=== PATIENT | male | born 1990 | race Caucasian/White ===

== ENCOUNTER 2024-11-11 08:03 | Emergency (ER) | payer OTHER, SELFPAY ==
[2024-11-11] VITALS (10 sets, daily range): BP systolic 137–164; BP diastolic 81–111; PULSE 86–109; RESP 15–22; TEMP 36.9; O2SAT 96–97; BMI 26.7
--- NOTE | 2024-11-11 08:12 | EKG_ITS ---
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
--- NOTE | 2024-11-11 08:17 | DI.RAD.S_ITS ---
PROCEDURE: XR CHEST 1V INDICATIONS: Chest Pain TECHNIQUE: One view of the chest was acquired. COMPARISON: None. FINDINGS: Cardiopericardial silhouette and pulmonary vasculature within normal limits. No pneumothorax, no pleural effusion, no lobar consolidation. IMPRESSION: Negative chest one view. If symptoms persist or worsen, or there is high clinical suspicion of thoracic abnormality, CT chest could be performed. Dictated by: Dallas Douglas M.D. on 11/11/2024 at 8:32 Approved by: Dallas Douglas M.D. on 11/11/2024 at 8:33
[2024-11-11 08:27] LABS: Add Manual Diff / Slide Review NO; Hematocrit 49.2 % (41-53); Hemoglobin 17.2 g/dL (13.5-17.5); Lymphocytes Absolute Auto 1800 /uL (1100-4500); Mean Corpuscular HGB Conc 34.9 % (30-36); Mean Corpuscular Hemoglobin 29.4 PG (26-34); Mean Corpuscular Volume 84.1 fL (80-100); Platelet Count 275 X10^3/uL (150-400)
[2024-11-11 08:34] LABS: INR 0.9 (0.9-1.3); Prothrombin Time 10.7 SECONDS (9.4-12.5)
[2024-11-11 08:37] LABS: PTT Partial Thromboplastin Tim 32 SECONDS (25.1-36.5)
[2024-11-11 08:39] LABS: Alanine Aminotransferase 75 IU/L (<50); Albumin 5.1 g/dL (3.5-5.0); Albumin Globulin Ratio 1.6 (1.0-2.8); Alkaline Phosphatase 75 U/L (38-126); Blood Urea Nitrogen 17 mg/dL (9-20); Calcium 9.5 mg/dL (8.4-10.2); Carbon Dioxide 26 mmol/L (22-32); Chloride 105 mmol/L (98-107); Creatine Kinase 208 U/L (55-170); Estimated Glomerular Filt Rate > 60 mL/min (>60); Globulin 3.1 g/dL (1.7-4.1); Glucose 101 mg/dL (70-99); HEMOLYSIS 41 (0-50); Lipase 91 U/L (23-300); Magnesium 2.1 mg/dL (1.6-2.3); Potassium 4.0 mmol/L (3.4-5.1); Sodium 141 mmol/L (137-145); Total Protein 8.2 g/dL (6.3-8.2)
[2024-11-11 08:50] LABS: NT-proBNP (BNP-Adult 18+) 459 pg/mL (<125); Troponin I < 0.012 ng/mL (0.01-0.034)
--- NOTE | 2024-11-11 08:59 | ED_ITS ---
HPI - Arrhythmia/Palpitations General Chief Complaint: Arrhythmia/Palpitations Stated Complaint: Possible AFIB Time Seen by Provider: 11/11/24 08:31 Source: patient Mode of arrival: Ambulatory History of Present Illness HPI narrative: This is a 34-year-old man with a history of paroxysmal atrial fibrillation presenting with 12 hours of atrial fibrillation. States that he noted this at 7:30 p.m. last night. He is not having chest pain he is not fainting he is not feeling short of breath. He has had numerous episodes of atrial fibrillation in the past and has been cardioverted numerous times. He says it has been about 2 years since his last cardioversion he is not anticoagulated. He is not taking any regular prescriptions medications at this point does not have a primary care provider and has not seen a sewing machine operator plastic zipper in quite some time. Previous care has been at [facility]. No history of aneurysm severe headache or GI bleeding. Related Data Previous Rx's ?Medication ?Instructions ?Recorded metoprolol tartrate 25 mg tablet See Rx Instructions . 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 leisure activities: sports and games Smoking Status: Former smoker alcohol intake: current during the past year weight has: remained stable Smoking Status: Former smoker Exam Initial Vital Signs Initial Vital Signs: Vital Signs Pulse Rate 94 H 11/11/24 08:11 Pulse Oximetry 97 11/11/24 08:11 vital signs are reviewed Const General: cooperative and No acute distress HENMT Head: normocephalic and atraumatic Face and sinus: face symmetric Mouth: moist mucous membranes Eyes Pupils: PERRL EOM: EOM intact bilaterally Neck Neck: normal visual inspection, supple and No JVD Chest Chest: normal inspection of the chest Resp Effort & Inspection: normal respiratory effort and able to speak in complete sentences Auscultation: clear to auscultation bilaterally Cardio Other: Irregularly irregular no murmur rub or gallop heart sounds are normal GI Inspection: normal to inspection Palpation: soft Auscultation: normal bowel sounds Back/Spine/Pelvis Back: normal to inspection Skin General: no rashes or lesions noted and warm Neuro General: patient alert, patient oriented x3 and moves all extremities Speech: speech normal Extrem General: full ROM Psych Appearance: grossly normal Procedures Cardioversion Time of Cardioversion: 09:30 Indication: Atrial fibrillation Stability: Stable Number of attempts (shocks): 1 Joules used: 150 Cardiac rhythm post-cardioversion: Normal sinus rhythm Additional Comments: Synchronized cardioversion uneventful Procedural Sedation Time of procedure: Consent signed: Yes Time out performed: Yes Indication: cardioversion ASA Class: I Mallampati Airway Classification: Class I Time of Last PO Intake: 21:30 IV Etomidate dose (mg): 15 ED Sedation Level: Moderate (Concious) Patient Tolerated Procedure: No complications Additional Comments: At 9:45 a.m. patient is back to baseline. Course Orders Ordered: ED Orders 11/11/24 08:17 XR chest 1V Stat Complete Blood Count AUTO DIFF Stat Comprehensive Metabolic Panel Stat Lipase Stat Magnesium Stat NT-proBNP (BNP-Adult 18+) Stat PTT Partial Thromboplastin Rodney Stat Prothrombin Time INR Stat Troponin & CK Cardiac Panel Stat EKG-12 Lead Stat 11/11/24 09:03 Consult to Cardiology Stat 11/11/24 09:41 EKG-12 Lead Stat Discontinued Medications Apixaban (Apixaban 5 Mg Tablet) 5 mg PO NOW ONE Stop: 11/11/24 09:45 Last Admin: 11/11/24 09:57 Dose: 5 mg Documented By: RICARDA Aspirin (Aspirin 81 Mg Chew Tab) 324 mg PO NOW ONE Stop: 11/11/24 08:18 Etomidate (Etomidate 2 Mg/Ml 10 Ml Vial) 15 mg IV NOW ONE Stop: 11/11/24 09:03 Last Admin: 11/11/24 09:35 Dose: 15 mg Documented By: RICARDA Etomidate (Etomidate 2 Mg/Ml 10 Ml Vial) 10 mg 0.1 mg/kg (10 mg) IV NOW ONE Stop: 11/11/24 09:29 Vital Signs Vital signs: Vital Signs - 8 hr 11/11/24 08:11 11/11/24 08:12 11/11/24 08:12 Temperature Pulse Rate 94 H 101 H Respiratory Rate Blood Pressure 163/95 H Pulse Oximetry 97 97 Oxygen Delivery Method 11/11/24 08:13 11/11/24 08:30 11/11/24 08:31 Temperature 98.5 F Pulse Rate 102 H 104 H Respiratory Rate 15 17 Blood Pressure 163/95 H 137/81 Pulse Oximetry 97 96 Oxygen Delivery Method Room Air 11/11/24 08:31 11/11/24 09:00 11/11/24 09:00 Temperature Pulse Rate 105 H 106 H Respiratory Rate 16 20 Blood Pressure 161/84 H Pulse Oximetry 96 96 Oxygen Delivery Method 11/11/24 09:30 11/11/24 09:30 11/11/24 09:37 Temperature Pulse Rate 107 H 109 H Respiratory Rate 16 Blood Pressure 163/110 H Pulse Oximetry 96 97 Oxygen Delivery Method 11/11/24 09:37 11/11/24 10:00 11/11/24 10:01 Temperature Pulse Rate 86 Respiratory Rate 22 Blood Pressure 164/111 H 146/95 H Pulse Oximetry Oxygen Delivery Method 11/11/24 10:01 Temperature Pulse Rate 90 Respiratory Rate 18 Blood Pressure Pulse Oximetry Oxygen Delivery Method MDM - Arrhythmia/Palpitations Lab Data Lab results narrative: CBC with diff and CMP are unremarkable 11/11/24 08:17 11/11/24 08:17 Labs: Lab Results 11/11/24 Range/Units 08:17 WBC 6.7 (4.5-11.0) X10^3/uL RBC 5.85 (4.5-5.9) X10^6/uL Hgb 17.2 (13.5-17.5) g/dL Hct 49.2 (41-53) % MCV 84.1 (80-100) fL MCH 29.4 (26-34) PG MCHC 34.9 (30-36) % RDW 13.1 (11.6-14.8) % Plt Count 275 (150-400) X10^3/uL Neut % (Auto) 57.3 (50-75) % Lymph % (Auto) 26.6 (25-40) % B[place] % (Auto) 9.8 (3-14) % Eos % (Auto) 4.5 H (2-4) % Baso % (Auto) 1.8 (0-2) % Neut # (Auto) 3900 (0974-9869) /uL Lymph # (Auto) 1800 (4901-5066) /uL [place] # (Auto) 700 (0-900) /uL Eos # (Auto) 300 (0-450) /uL Baso # (Auto) 100 (0-100) /uL PT 10.7 (9.4-12.5) SECONDS INR 0.9 (0.9-1.3) APTT 32 (25.1-36.5) SECONDS Sodium 141 (137-145) mmol/L Potassium 4.0 (3.4-5.1) mmol/L Chloride 105 (98-107) mmol/L Carbon Dioxide 26 (22-32) mmol/L BUN 17 (9-20) mg/dL Creatinine 1.03 (0.66-1.25) mg/dL Estimated GFR > 60 (>60) mL/min BUN/Creatinine Ratio 16.5 (6-22) Glucose 101 H (70-99) mg/dL Calcium 9.5 (8.4-10.2) mg/dL Magnesium 2.1 (1.6-2.3) mg/dL Total Bilirubin 0.7 (0.2-1.3) mg/dL AST 48 (17-59) IU/L ALT 75 H (<50) IU/L Alkaline Phosphatase 75 (38-126) U/L Total Creatine Kinase 208 H (55-170) U/L Troponin I < 0.012 (0.01-0.034) ng/mL NT-Pro-B Natriuret Pep 459 H (<125) pg/mL Total Protein 8.2 (6.3-8.2) g/dL Albumin 5.1 H (3.5-5.0) g/dL Globulin 3.1 (1.7-4.1) g/dL Albumin/Globulin Ratio 1.6 (1.0-2.8) Lipase 91 (23-300) U/L ECG Data Attestation: I personally reviewed and interpreted this ECG as follows: (ECG showed atrial fibrillation ventricular rate is 102. No acute ST segment changes. Post cardioversion ECG shows sinus rhythm at 96 ) MDM Narrative Medical decision making narrative: 34-year-old male with a history of paroxysmal atrial fibrillation presenting with an episode of atrial fibrillation. Onset was less than 12 hours ago, he was felt to be an appropriate candidate for cardioversion and he was agreeable to be in cardioverted. This was successful, he was started on anticoagulation from the emergency department and will follow up with Cardiology Discharge Plan Departure Patient Disposition: Home Clinical Impression: Atrial fibrillation Qualifiers: Atrial fibrillation type: paroxysmal Qualified Code(s): I48.0 - Paroxysmal atrial fibrillation Activity Restrictions/Additional Instructions: Today, we treated you for an episode of atrial fibrillation. You need to be on a anticoagulation medication (blood thinner) for 30 days. Gave a dose of apixaban in the emergency department, your insurance preference is for Xarelto. You can start this tonight take it with your evening meal. I wrote a prescription for metoprolol, you can try 1 dose of metoprolol if you have the onset of atrial fibrillation, it is possible that this will slow your heart rate enough that you will convert back into normal sinus rhythm. While you are taking the blood thinner you should not take ibuprofen aspirin or naproxen. For minor aches or pains it is fine to take Tylenol. If you have black stool vomiting blood or have external bleeding that is not easily controlled with direct pressure return to the emergency department. You should make a follow up appointment with Cardiology. You may call Dr. Medina or make an appointment with a sewing machine operator plastic zipper in [place]. If you are having recurrent symptoms of atrial fibrillation that do not resolve within 8 hours or if they are associated with chest pain shortness of breath or feeling faint you should be seen in the emergency department. We gave you a sedating medication this morning. You should not drive operate machinery for at least 8 hours. Prescriptions: New Xarelto 20 mg tablet 20 mg PO QPM Qty: 30 0RF Rx Instructions: must administer with evening meal metoprolol tartrate 25 mg tablet See Rx Instructions .ROUTE .COMPLEX Qty: 5 0RF Rx Instructions: 25 mg orally-take 1 tablet at onset of atrial fibrillation Stand Alone Forms: Patient Portal/API
--- NOTE | 2024-11-11 09:15 | PM.CN ---
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 Patient states that started experiencing paroxysmal atrial fibrillation since age 16. Initially several such episodes. He he underwent diagnostic catheterization,, cardiac MRI, coronary CTA. Since 2020 his episodes of atrial fibrillation became infrequent and he lost follow-up with his ict customer support officer. In last 2 years he has had 3 such episodes. 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 He denies snoring. He drinks alcohol 3-4 beers per week no history of smoking or tobacco chewing or use of marijuana. No history of illicit drug use. He denies any family history of such arrhythmias. Denies any history of sudden cardiac . He came to the emergency room seen by ER physician. After reviewing his history Dr. Molina recommended that he should have a follow-up with a ict customer support officer to undergo diagnostic workup and have discussion about possible ablation. Meds Home Medications and Allergies Allergies Allergy/AdvReac Type Severity Reaction Status Date / Time acetaminophen (From Percocet) Allergy Unknown Verified 11/11/24 08:14 oxycodone (From Percocet) Allergy Unknown Verified 11/11/24 08:14 Review of Systems Review of Systems Narrative: Palpitation, anxiety. ROS: Yes All systems reviewed with the patient and are negative except as otherwise documented Constitutional Constitutional: Reports system reviewed and no additional complaints, except as documented Exam Vital Signs (past 8 hours): - 11/11/24 08:13 Temperature 98.5 F Pulse Rate 102 H Respiratory Rate 15 Blood Pressure 163/95 H Pulse Oximetry 97 Oxygen Delivery Method Room Air Oxygen Delivery Method Room Air Const General: cooperative, healthy appearing, comfortable and well developed Nutritional Appearance: average body habitus Orientation: oriented x3 HENMT Head: normal to inspection Eyes General: appearance normal, both eyes and all related structures Neck Neck: normal visual inspection Chest Chest: normal inspection of the chest Cardio Palpation: normal PMI Rate: tachycardic Rhythm: abnormal rhythm Heart Sounds: S1 normal and S2 normal GI Inspection: normal to inspection and abdominal wall ecchymosis Auscultation: normal bowel sounds Back/Spine/Pelvis Back: normal to inspection Objective Labs 11/11/24 08:17 11/11/24 08:17 Labs: Laboratory Results - last 24 hr 11/11/24 08:17 WBC 6.7 RBC 5.85 Hgb 17.2 Hct 49.2 MCV 84.1 MCH 29.4 MCHC 34.9 RDW 13.1 Plt Count 275 Neut % (Auto) 57.3 Lymph % (Auto) 26.6 [place] % (Auto) 9.8 Eos % (Auto) 4.5 H Baso % (Auto) 1.8 Neut # (Auto) 3900 Lymph # (Auto) 1800 Ritchie # (Auto) 700 Eos # (Auto) 300 Baso # (Auto) 100 PT 10.7 INR 0.9 APTT 32 Sodium 141 Potassium 4.0 Chloride 105 Carbon Dioxide 26 BUN 17 Creatinine 1.03 Estimated GFR > 60 BUN/Creatinine Ratio 16.5 Glucose 101 H Calcium 9.5 Magnesium 2.1 Total Bilirubin 0.7 AST 48 ALT 75 H Alkaline Phosphatase 75 Total Creatine Kinase 208 H Troponin I < 0.012 NT-Pro-B Natriuret Pep 459 H Total Protein 8.2 Albumin 5.1 H Globulin 3.1 Albumin/Globulin Ratio 1.6 Lipase 91 PFSH Comment: History of PAF since age 16, RBBB. 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 leisure activities: sports and games Tobacco & Substance Use Smoking Status: Former smoker alcohol intake: current Diet and Exercise during the past year weight has: remained stable Assessment & Plan Assessment and plan (1) Atrial fibrillation: Qualifiers: Atrial fibrillation type: paroxysmal Qualified Code(s): I48.0 - Paroxysmal atrial fibrillation Status: Acute (2) Right bundle branch block: Status: Acute Plan Patient has symptomatic atrial fibrillation with rapid ventricular rate.. It is okay to proceed with emergent cardioversion since he is symptomatic with symptoms of palpitations anxiety. And mild shortness of breath. His vital signs are stable with a blood pressure 163/95 and heart rate of 110-130 beats per minute irregularly irregular. Recommendations: Fasting at least 4 hours prior to cardioversion Give her a dose of 5000 units of heparin Start apixaban 5 mg twice daily Metoprolol tartrate 25 mg as needed. Establish care with [facility]. We discussed ablation as a definitive therapy since the frequency and duration of paroxysmal atrial fibrillation have increased. Follow-up at [facility]. Address: [address] [place] [id number] Time-Based Coding :: [TOTAL MINUTES] 40 minutes spent with patient and on the chart (including review of chart, obtaining history, exam, reviewing outside data, placing orders, documenting exam and treatment plan, and counseling patient) on [DATE].
[2024-11-11] MEDS: ETOMIDATE 2 MG/ML 10 ML VIAL 15 MG IV (09:35)
--- NOTE | 2024-11-11 09:45 | EKG_ITS ---
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
[2024-11-11] MEDS: APIXABAN 5 MG TABLET PO (09:57)
--- NOTE | 2024-11-11 10:04 | PC.NURSE ---
[facility] Note: Demographics faxed to Dr. Montemayor office per Dr. Medina.
== END 2024-11-11 10:14 | disposition home or self-care (01) ==
PROVIDERS: Emergency Provider Emergency Medicine
DX: I48.0 Paroxysmal atrial fibrillation (principal)
CPT/HCPCS: 36415; 71045; 80053; 82550; 83690; 83735; 83880; 84484; 85025; 85610; 85730; 92960; 93005; 99285